=== PATIENT | female | born 1995 | race African-American/Black ===

== ENCOUNTER 2022-11-01 08:36 | Emergency (ER) | payer MEDICAID, OTHER ==
[~2022-11-01] VITALS: Ht 165.1 cm; Wt 72.7 kg
[2022-11-01] MEDS ORDERED: CYCL5TAB MT (10:29)
[2022-11-01] MEDS ORDERED: IBUP-2030 MT (10:29)
[2022-11-01 11:07] VITALS: BP 132/68
== END 2022-11-01 11:10 | disposition home or self-care (01) ==
LOC: ER 08:36
DX: M54.6 Pain in thoracic spine (principal); V49.49XA Driver injured in collision with other motor vehicles in traffic accident, initial encounter; Y93.89 Activity, other specified; Y92.89 Other specified places as the place of occurrence of the external cause; Y99.8 Other external cause status; Z88.0 Allergy status to penicillin
CPT/HCPCS: 72070; 81025; 99283

== ENCOUNTER 2023-02-18 08:36 | Emergency (ER) | payer MEDICAID ==
[~2023-02-18] VITALS: Ht 165.1 cm; Wt 75.0 kg
[~2023-02-18 08:36] MED LIST: CYCL5TAB MT; IBUP-2030 MT
[2023-02-18 08:50] VITALS: BP 113/71; PULSE 73; RESP 16; TEMP 98.7; O2SAT 98
[2023-02-18] MEDS ORDERED: NAPR-1176 MT (09:06)
== END 2023-02-18 10:24 | disposition home or self-care (01) ==
LOC: ER 08:36
DX: M54.50 Low back pain, unspecified (principal); Z88.0 Allergy status to penicillin; V49.9XXA Car occupant (driver) (passenger) injured in unspecified traffic accident, initial encounter; Y93.89 Activity, other specified; Y92.89 Other specified places as the place of occurrence of the external cause; Y99.8 Other external cause status
CPT/HCPCS: 99281; 99282

== ENCOUNTER 2023-02-22 11:58 | Emergency (ER) | payer MEDICAID ==
[~2023-02-22] VITALS: Ht 165.1 cm; Wt 74.8 kg
[~2023-02-22 11:58] MED LIST changes: +NAPR-1176 MT
[2023-02-22 12:32] VITALS: BP 114/68; PULSE 76; RESP 16; TEMP 98.5; O2SAT 99
[2023-02-22] MEDS ORDERED: ACET-2708 PO (13:21)
== END 2023-02-22 13:43 | disposition home or self-care (01) ==
LOC: ER 11:58
DX: M54.9 Dorsalgia, unspecified (principal); Z88.0 Allergy status to penicillin; V99.XXXA Unspecified transport accident, initial encounter; Y93.89 Activity, other specified; Y92.89 Other specified places as the place of occurrence of the external cause; Y99.8 Other external cause status
CPT/HCPCS: 99282